=== PATIENT | female | born 1975 | race Hispanic/Latino ===

== ENCOUNTER 2021-06-30 22:05 | Emergency (ER) | payer OTHER ==
[~2021-06-30] VITALS: Ht 154.9 cm; Wt 77.1 kg
[2021-06-30 22:22] VITALS: BP 146/85
[2021-06-30] MEDS: IBUPROFEN 600 MG TABLET PO ONE (22:30)
[2021-06-30] MEDS ORDERED: IBUP-2070 PO (22:46)
== END 2021-06-30 23:17 ==
LOC: EDH 22:05
DX: S93.491A Sprain of other ligament of right ankle, initial encounter (principal); Z90.710 Acquired absence of both cervix and uterus; Z79.899 Other long term (current) drug therapy; X50.1XXA Overexertion from prolonged static or awkward postures, initial encounter; Y93.89 Activity, other specified; Y92.89 Other specified places as the place of occurrence of the external cause; Y99.8 Other external cause status
CPT/HCPCS: 29515; 73610